=== PATIENT | female | born 1995 ===

== ENCOUNTER 2020-09-23 19:47 | Emergency (ER) | payer SELFPAY ==
[~2020-09-23] VITALS: Ht 170.2 cm; Wt 63.0 kg
[2020-09-23 20:28] VITALS: BP 134/83
[2020-09-23] MEDS ORDERED: PODOFILOX0.5 % EX (20:35)
== END 2020-09-23 21:05 | disposition home or self-care (01) | DRG 607 ==
LOC: ED 19:47
DX: A63.0 Anogenital (venereal) warts (principal)